=== PATIENT | female | born 1935 | race Caucasian/White ===

== ENCOUNTER 2017-01-12 09:16 | Day surgery (SDC) | payer OTHER ==
[2017-01-06 08:13] VITALS: BMI 26.0
[~2017-01-12] VITALS: Ht 160 cm; Wt 67.3 kg
[~2017-01-12 09:16] MED LIST: ATEN50TA8 PO; DEXAMETHASONE SOD INJ 4 MG/ML VIAL ONE; FENTANYL CITRATE INJ 50 MCG/1 ML 2 ML VIAL ONE; GLC/500 PO; LACTATED RINGER'S 1000ML 1,000 ML IV SCH; LIDOCAINE HCL 2% 2 ML VIAL (20MG/ML) ONE; ONDANSETRON INJ 2 MG/ML 2 ML VIAL ONE; PROPOFOL IV EMULSION 10 MG/ML 20 ML VIAL IV ONE; ROCURONIUM BROMIDE 10 MG/ML 5 ML VIAL IV ONE; SUCCINYLCHOLINE CHLORIDE 20 MG/ML 10 ML VIAL IV ONE
[2017-01-12] MEDS ORDERED: INDOMETHACIN 50 MG SUPP PR ONE (09:24)
[2017-01-12 09:39] VITALS: BP 180/84; PULSE 69; TEMP 37; O2SAT 97; Ht 160 cm; Wt 67.3 kg
[2017-01-12] MEDS ORDERED: PROPOFOL IV EMULSION 10 MG/ML 20 ML VIAL IV ONE (09:39)
[2017-01-12] MEDS ORDERED: LIDOCAINE HCL 2% 2 ML VIAL (20MG/ML) ONE (09:39)
[2017-01-12 09:45] LABS: BASO % 0.9 %; BASO ABS # 0.06 K/uL (0-0.2); EOS % 3.8 %; HEMATOCRIT 40.4 % (37-47); IG% 0.2 %; LYMPH % 26.2 %; LYMPH ABS # 1.73 K/uL (1.2-3.4); MEAN CELL VOLUME 93.5 fL (80-100); MEAN CORPUSCULAR HEMOGLOBIN 29.6 pg (25-34); MEAN PLATELET VOLUME 9.1 fL (7.4-10.4); MONO % 10.6 %; NEUT % 58.3 %; PLATELET COUNT 268 K/uL (130-400); RED BLOOD COUNT 4.32 M/uL (4.2-5.4)
[2017-01-12 09:52] LABS: INR 0.9 (0.9-1.1)
[2017-01-12 09:53] LABS: COMPLETE YES; MEAN CORPUSCULAR HGB CONC 31.7 g/dl (32-36)
[2017-01-12 10:04] LABS: PROTHROMBIN TIME (PATIENT) 10.1 SECONDS (9.0-12.0)
[2017-01-12 10:14] LABS: BUN/CREATININE RATIO 23.7 (10-20); CALCIUM 8.9 mg/dl (8.5-10.1); CREATININE 0.76 mg/dl (0.60-1.20); POTASSIUM 3.7 mmol/L (3.5-5.1)
--- NOTE | 2017-01-12 10:32 | Endo History and Physical ---
History & Physical Date of Service: Jan 12, 2017. Chief Complaint: Abnormal imaging study Referring Physician: History of Present Illness The patient is referred by for evaluation of a dilated common bile duct seen on a recent CT scan. The patient was in her usual state of health until having problems with hematochezia. During the evaluation she underwent an ultrasound which showed dilation of her common bile duct to 14 mm without elevation of her liver associated enzymes. A follow-up CT scan showed no evidence of gallstones or mass. She is referred today for upper endoscopy, endoscopic ultrasound and possible ERCP. She denies having symptoms of abdominal discomfort nausea fevers chills or sweats. Of note her CT does show a large hiatal hernia with possible intrathoracic stomach Past Surgical History Hx Cardiac Surgery: Yes (CARDIAC CATH NO STENT-LAST 6 YRS?) Hx Abdominal Surgery: Yes (APPENDECTOMY) Hx Post-Op Nausea and Vomiting: No Hx Cancer Surgery: No Hx Thoracic Surgery: No Hx Orthopedic: Yes (L TKA) Hx Urinary Tract Surgery: No Social History Smoking Status: Never Smoker Hx Substance Use: No Hx Alcohol Use: No Allergies Coded Allergies: Iodinated Contrast Media (Verified Allergy, Intermediate, RASH, 01/12/17) Sulfa Drugs (Verified Allergy, Intermediate, RASH, 01/12/17) Loratadine (Verified Allergy, Unknown, RASH, 01/12/17) Prednisone (Verified Allergy, Unknown, RASH, 01/12/17) Current Medications Reported Home Medications Medications Dose Route/Sig Max Daily Dose Days Date Category Glucophage (Metformin Hcl) 500 Mg Tab 500 Mg PO BID 01/06/17 Reported Tenormin (Atenolol) 50 Mg Tab 50 Mg PO BID 08/24/10 Reported Vital Signs Weight (Kilograms): 67.27 Height (Feet): 5 Height (Inches): 3 Date Time Temp Pulse Resp B/P (MAP) Pulse Ox O2 Delivery O2 Flow Rate FiO2 01/12/17 09:39 37 69 18 180/84 (116) 97 Room Air Physical Exam General Appearance: no apparent distress Respiratory/Chest: Auscultation: breath sounds normal Cardiovascular: Heart Auscultation: RRR Abdomen: Inspection & Palpation: RUQ tenderness Assessment and Plan Patient referred for evaluation of a dilated common bile duct seen on imaging study. Of note her liver associated enzymes appear to be within normal limits. We have discussed the role of upper endoscopy and EUS for further evaluation. We have also discussed the potential role of ERCP should a common bile duct stone be seen. The risks of the procedures were discussed with the patient to include bleeding, infection, perforation, failed cannulation, pancreatitis, and the need for follow-up procedures. Plan Diagnostic upper endoscopy Diagnostic endoscopic ultrasound with possible fine-needle aspiration if the masses seen ERCP if common bile duct stones are noted
[2017-01-12] MEDS ORDERED: INDOMETHACIN 50 MG SUPP PR SCH (11:00)
--- NOTE | 2017-01-12 11:33 | [facility] Post Operative Brief Note ---
Immediate Operative Summary Operative Date Jan 12, 2017. Pre-Operative Diagnosis Dilated common bile duct as seen on previous CT imaging Post-Operative Diagnosis Dilated common bile duct and hiatal hernia Procedure(s) Performed Upper Endoscopic Ultrasonography, esophagogastroduodenoscopy Surgeon Dr. Arabella Major Location Manager Surgeon(s) None Estimated Blood Loss 0 mL Findings small hiatal hernia / possible paraesophageal hernia dilated common bile duct (no stricture, mass or stones seen) Specimens All pathology specimens to be handled by endoscopy staff. Anesthesia General Complication(s) None Disposition Recovery Room / PACU
--- NOTE | 2017-01-12 11:34 | Discharge Instructions ---
Endoscopy Patient Instructions Date / Procedure(s) Performed Jan 12, 2017. EGD, Other (Endoscopic Ultrasound) Allergy Information Coded Allergies: Iodinated Contrast Media (Verified Allergy, Intermediate, RASH, 01/12/17) Sulfa Drugs (Verified Allergy, Intermediate, RASH, 01/12/17) Loratadine (Verified Allergy, Unknown, RASH, 01/12/17) Prednisone (Verified Allergy, Unknown, RASH, 01/12/17) Discharge Date / Findings Jan 12, 2017. Mild dilation of the common bile duct No pancreatic or ampullary mass seen No choledocholithiasis Medication Instructions Reported Home Medications Medications Dose Route/Sig Max Daily Dose Days Date Category Glucophage (Metformin Hcl) 500 Mg Tab 500 Mg PO BID 01/06/17 Reported Tenormin (Atenolol) 50 Mg Tab 50 Mg PO BID 08/24/10 Reported Provider Instructions Activity Restrictions - No exercising or heavy lifting for 24 hours. - Do not drink alcohol the day of the procedure. - Do not drive a car or operate machinery until the day after the procedure. - Do not make any important decisions or sign important papers in 24 hours after the procedure. Following Day: - Return to full activity which may include returning to work/school. Diet Start your diet with liquids and light foods (jello, soup, juice, toast). Then eat your usual diet if not nauseated. Treatment For Common After Affects For mild abdominal pain, bloating, or excessive gas: - Rest - Eat lightly - Lie on right side Follow-Up Information Regular diet today Repeat EUS in 3 months for surveillance Anesthesia Information What You Should Know You have had a procedure that required some medicine to reduce anxiety and discomfort. This treatment is called moderate sedation. After receiving the treatment, you may be sleepy, but you will be able to breathe on your own. The effects of the treatment may last for several hours. Follow these instructions along with Activity/Diet recommendations noted above: * Do NOT do anything where dizziness or clumsiness would be dangerous. * Rest quietly at home today, then you can be up and about tomorrow. * Have a responsible person stay with you the rest of today. * You may have had an I.V. today. If so, you may take the dressing off later today. Recommendations Call your doctor if: * Trouble breathing * Continuous vomiting for more than 24 hours * Temperature above 101 degrees * Severe abdominal pain or bloating * Pain not relieved by pain medicine ordered * There is increased drainage or redness from any incision * A large amount of rectal bleeding greater than 2-3 tablespoons. (If you had a polyp/s removed or have hemorrhoids, a small amount of blood - from the rectum is to be expected.) * You have any unanswered questions or concerns. IN THE EVENT OF A SERIOUS EMERGENCY, GO TO THE NEAREST EMERGENCY ROOM Your discharge instructions were prepared by provider Arabella Major. Patient Instructions Signature Page Yolanda Mooney Patient (or Guardian) Signature/Date: I have read and understand the instructions given to me by my caregivers. Caregiver/RN/Doctor Signature/Date: The above-named patient and/or guardian has received patient instructions on this date. + Original Patient Signature Page (only) stays with chart. Please make copy for patient.
[2017-01-12] MEDS ORDERED: ONDANSETRON INJ 2 MG/ML 2 ML VIAL IV PRN (11:45)
[2017-01-12] MEDS ORDERED: GLYCOPYRROLATE INJ 0.2 MG/ML VIAL ONE (11:51)
[2017-01-12] MEDS ORDERED: ATROPINE SULFATE 0.1 MG/ML 5ML SYR IV PRN (12:00)
[2017-01-12] MEDS ORDERED: EpHEDrine SULFATE INJ 50 MG/ML AMP IV PRN (12:00)
--- NOTE | 2017-01-12 12:27 | Anesthesiology Progress Note ---
Anesthesia Post Op Note Date & Time Jan 12, 2017 at 12:26 Vital Signs Pain Intensity: 0 Vital Signs Past 12 Hours Date Time Temp Pulse Resp B/P (MAP) Pulse Ox O2 Delivery O2 Flow Rate FiO2 01/12/17 12:15 65 20 142/69 99 Oxymask 10 01/12/17 12:05 65 16 160/78 99 Oxymask 10 01/12/17 11:55 67 20 156/64 100 Oxymask 10 01/12/17 11:49 36.1 67 12 167/80 96 Oxymask 01/12/17 09:39 37 69 18 180/84 (116) 97 Room Air Notes Mental Status: alert / awake / arousable, participated in evaluation Pt Amnestic to Procedure: Yes Nausea / Vomiting: adequately controlled Pain: adequately controlled Airway Patency, RR, SpO2: stable & adequate BP & HR: stable & adequate Hydration State: stable & adequate Anesthetic Complications: no major complications apparent
[2017-01-12 12:45] VITALS: BP 170/72; PULSE 70; TEMP 36.9; O2SAT 95
[2017-01-12 13:15] VITALS: BP 161/77; PULSE 73; O2SAT 93
[2017-01-12 13:40] VITALS: BP 170/78; PULSE 71; TEMP 36.5; O2SAT 96
--- NOTE | 2017-01-13 00:14 | GI REPORT ---
Procedure Date: 01/12/2017 11:03 AM Procedure: Upper EUS Indications: Common bile duct dilation (acquired) seen on CT scan, Abnormal ultrasound of the abdomen Medicines: General Anesthesia Complications: No immediate complications. Estimated blood loss: Minimal. Estimated Blood Loss: Estimated blood loss was minimal. Procedure: Pre-Anesthesia Assessment: - Prior to the procedure, a History and Physical was performed, and patient medications, allergies and sensitivities were reviewed. The patient's tolerance of previous anesthesia was reviewed. - The risks and benefits of the procedure and the sedation options and risks were discussed with the patient. All questions were answered and informed consent was obtained. - Patient identification and proposed procedure were verified prior to the procedure by the physician, the nurse and the scientologist. The procedure was verified in the procedure room. - Pre-procedure physical examination revealed no contraindications to sedation. - ASA Grade Assessment: III - A patient with severe systemic disease. - After reviewing the risks and benefits, the patient was deemed in satisfactory condition to undergo the procedure. - The anesthesia plan was to use general anesthesia. - Immediately prior to administration of medications, the patient was re-assessed for adequacy to receive sedatives. - The heart rate, respiratory rate, oxygen saturations, blood pressure, adequacy of pulmonary ventilation, and response to care were monitored throughout the procedure. - The physical status of the patient was re-assessed after the procedure. After obtaining informed consent, the endoscope was passed under direct vision. Throughout the procedure, the patient's blood pressure, pulse, and oxygen saturations were monitored continuously. The Endosonoscope was introduced through the mouth, and advanced to the second part of duodenum. The upper EUS was accomplished without difficulty. The patient tolerated the procedure well. Findings: Endosonographic Finding : There was no sign of significant endosonographic abnormality in the ampulla. No masses were identified. There was dilation in the common bile duct which measured up to 11 mm in the common hepatic portion and tapering to 8 mm in the distal duct. No stones, stricture or mass was noted. There was no sign of significant endosonographic abnormality in the gallbladder. No masses, no stones and no biliary sludge were identified. The gallbladder wall was 2 mm. There was no sign of significant endosonographic abnormality in the entire pancreas. The pancreatic duct measured up to 4 mm in diameter. No masses, no cysts, the pancreatic duct was well visualized from ampulla to tail. The PD was 4.8 mm in the head and 1 mm in the body. No lymphadenopathy seen. There was no sign of significant endosonographic abnormality in the left adrenal gland. No adrenal gland enlargement was identified. There was no sign of significant endosonographic abnormality in the visualized portion of the liver. Homogeneous parenchyma, no focal pathology and no masses were identified. Impression: - Normal ampulla. - Mild dilation of the CBD to 11 mm. No obvious stricture, mass or stone material was seen. - Normal gallbladder. - Normal pancreas. - Normal left adrenal gland. - No specimens collected. Recommendation: - Discharge patient to home (ambulatory). - Advance diet as tolerated today. - Repeat the upper endoscopic ultrasound in 3 months for surveillance. If unchanged at that time will discontinue follow-up. Arabella Major D.O. Arabella Major, 01/12/2017 11:52:57 AM This report has been signed electronically. Note Initiated On: 01/12/2017 11:03 AM I attest to the content of the Intraoperative Record and orders documented therein, exceptions below
--- NOTE | 2017-01-13 00:14 | GI REPORT ---
Procedure Date: 01/12/2017 9:17 AM Procedure: Upper GI endoscopy Indications: Abnormal CT of the GI tract, Abnormal ultrasound of the GI tract Medicines: General Anesthesia Complications: No immediate complications. Estimated blood loss: Minimal. Estimated Blood Loss: Estimated blood loss was minimal. Procedure: Pre-Anesthesia Assessment: - Prior to the procedure, a History and Physical was performed, and patient medications, allergies and sensitivities were reviewed. The patient's tolerance of previous anesthesia was reviewed. - The risks and benefits of the procedure and the sedation options and risks were discussed with the patient. All questions were answered and informed consent was obtained. - Patient identification and proposed procedure were verified prior to the procedure by the physician, the nurse and the ice cream freezer assistant. The procedure was verified in the procedure room. - Pre-procedure physical examination revealed no contraindications to sedation. - ASA Grade Assessment: III - A patient with severe systemic disease. - After reviewing the risks and benefits, the patient was deemed in satisfactory condition to undergo the procedure. - The anesthesia plan was to use general anesthesia. - Immediately prior to administration of medications, the patient was re-assessed for adequacy to receive sedatives. - The heart rate, respiratory rate, oxygen saturations, blood pressure, adequacy of pulmonary ventilation, and response to care were monitored throughout the procedure. - The physical status of the patient was re-assessed after the procedure. After obtaining informed consent, the endoscope was passed under direct vision. Throughout the procedure, the patient's blood pressure, pulse, and oxygen saturations were monitored continuously. The scope was introduced through the mouth, and advanced to the third part of duodenum. The upper GI endoscopy was accomplished without difficulty. The patient tolerated the procedure well. Findings: The upper third of the esophagus and middle third of the esophagus were normal. A medium-sized hiatus hernia was found. The proximal extent of the gastric folds (end of tubular esophagus) was 37 cm from the incisors. The hiatal narrowing was 40 cm from the incisors. The Z-line was 37 cm from the incisors. The hiatal hernia was difficult to see, there may be a paraesophageal component. The gastric fundus, gastric body, incisura and gastric antrum were normal. The examined duodenum was normal. Impression: - Normal upper third of esophagus and middle third of esophagus. - Medium-sized hiatus hernia. - Normal gastric fundus, gastric body, incisura and antrum. - Normal examined duodenum. - No specimens collected. Recommendation: - Perform an upper endoscopic ultrasound (UEUS) today. - Do an upper GI series at appointment to be scheduled (better define hiatal hernia). Arabella Major D.O. Arabella Major, 01/12/2017 11:03:03 AM This report has been signed electronically. Note Initiated On: 01/12/2017 9:17 AM I attest to the content of the Intraoperative Record and orders documented therein, exceptions below
== END 2017-01-12 13:40 | disposition home or self-care (01) ==
LOC: C.ACU 09:16
PROVIDERS: ATTEND Internal Medicine Gastroenterology
DX: R93.2 Abnormal findings on diagnostic imaging of liver and biliary tract (principal); K44.9 Diaphragmatic hernia without obstruction or gangrene; K83.8 Other specified diseases of biliary tract; Z90.89 Acquired absence of other organs; I10 Essential (primary) hypertension; Z86.73 Personal history of transient ischemic attack (TIA), and cerebral infarction without residual deficits; E11.9 Type 2 diabetes mellitus without complications; M19.90 Unspecified osteoarthritis, unspecified site; Z87.442 Personal history of urinary calculi; Z96.652 Presence of left artificial knee joint; Z98.41 Cataract extraction status, right eye; Z98.42 Cataract extraction status, left eye; G47.33 Obstructive sleep apnea (adult) (pediatric); E78.5 Hyperlipidemia, unspecified; Z79.84 Long term (current) use of oral hypoglycemic drugs; K92.1 Melena